=== PATIENT | male | born 1990 | race Two or more races ===

== ENCOUNTER 2019-05-23 12:10 | Emergency (ER) | payer OTHER ==
[~2019-05-23] VITALS: Ht 177.8 cm; Wt 69.1 kg
[2019-05-23 12:41] VITALS: Ht 177.8 cm; Wt 69.1 kg
[2019-05-23 13:13] LABS: BASOPHIL % 0.1 % (0-2); PLATELET COUNT 263 x10^3mcL (130-400); RED CELL DISTRIBUTION WIDTH 13.5 % (11.5-14.5)
[2019-05-23 13:28] LABS: CALCIUM 8.8 mg/dL (8.5-10.1); CARBON DIOXIDE 23.8 mmol/L (21-32); CHLORIDE SERUM 101 mmol/L (98-107); CREATININE SERUM 1.4 mg/dL (0.7-1.3); GFR1 > 60 mL/min; GLUCOSE SERUM 119 mg/dL (74-106); POTASSIUM SERUM 4.1 mmol/L (3.5-5.1); SODIUM SERUM 136 mmol/L (136-145)
[2019-05-23 13:29] LABS: LIPASE 81 IU/L (73-393)
[2019-05-23 15:24] LABS: UA SPECIFIC GRAVITY >=1.030 (1.005-1.035); microscopic required? YES; urine erythrocyte 3+ (NEGATIVE)
[2019-05-23 16:50] VITALS: BP 111/61
== END 2019-05-23 16:50 | disposition home or self-care (01) ==
LOC: ED 12:10
PROVIDERS: Emergency Medicine
DX: N20.2 Calculus of kidney with calculus of ureter (principal)
CPT/HCPCS: J1885; J2405; J7030

== ENCOUNTER 2019-05-25 08:22 | Emergency (ER) | payer OTHER | END 2019-05-25 08:30 | disposition left against medical advice (07) | LOC: ED 08:22 | DX: Z53.21 Procedure and treatment not carried out due to patient leaving prior to being seen by health care provider (principal) ==